=== PATIENT | male | born 1995 | race Caucasian/White ===

== ENCOUNTER 2017-10-09 21:29 | Emergency (ER) | payer OTHER ==
[~2017-10-09] VITALS: Ht 185.4 cm; Wt 140.6 kg
[2017-10-09] MEDS ORDERED: IBUPROFEN 800800 M1 PO (22:13)
[2017-10-09 23:14] VITALS: BP 132/90
== END 2017-10-09 23:14 | disposition home or self-care (01) ==
LOC: M.ERS 21:29
DX: S93.492A Sprain of other ligament of left ankle, initial encounter (principal); Z90.49 Acquired absence of other specified parts of digestive tract; W18.39XA Other fall on same level, initial encounter; Y93.89 Activity, other specified; Y92.89 Other specified places as the place of occurrence of the external cause; Y99.8 Other external cause status

== ENCOUNTER 2021-07-03 16:55 | Emergency (ER) | payer OTHER ==
[~2021-07-03] VITALS: Ht 182.9 cm; Wt 113.4 kg
[~2021-07-03 16:55] MED LIST: IBUPROFEN 800800 M1 PO
[2021-07-03] MEDS ORDERED: HYDROCODON-ACE1 EAC7 PO (17:49)
[2021-07-03 18:46] VITALS: BP 192/103
== END 2021-07-03 18:46 | disposition home or self-care (01) ==
LOC: M.ERS 16:55
DX: M25.572 Pain in left ankle and joints of left foot (principal); Z90.89 Acquired absence of other organs